=== PATIENT | male | born 1945 | race Hispanic/Latino ===

== ENCOUNTER 2018-10-11 07:58 | Inpatient (IN) | payer MEDICARE, OTHER ==
[~2018-10-11] VITALS: Ht 177.8 cm; Wt 75.4 kg
--- NOTE | ~2018-10-11 | EKG ---
[facility] [address] [facility] [place], [place] [address] Draft EK completed, results pending confirmation PATIENT NAME: ART MALAVE Electrocardiogram DATE OF : 47 PHYSICIAN: PRELIMINARY REPORT #: [id number] REPORT IS CONFIDENTIAL AND NOT TO BE RELEASED WITHOUT AUTHORIZATION
[2018-10-11] MEDS ORDERED: LOSARTAN POTASS50 MG PO (08:01)
[2018-10-11] MEDS ORDERED: PLAVIX75 MG PO (08:01)
[2018-10-11] MEDS ORDERED: ARMOUR THYROID30 MG PO (16:39)
[2018-10-11] MEDS ORDERED: ALDACTONE50 MG PO (16:40)
[2018-10-11] MEDS ORDERED: TERAZOSIN HCL2 MG PO (16:42)
[2018-10-11] MEDS ORDERED: VIAGRA100 MG PO (16:44)
[2018-10-11] MEDS ORDERED: HYDROCODON-ACE1 EA10 PO (16:46)
[2018-10-11] MEDS ORDERED: PROTONIX40 MG PO (16:47)
[2018-10-11] MEDS ORDERED: NITROSTAT0.4 MG SL (16:48)
[2018-10-11] MEDS ORDERED: NORVASC10 MG PO (16:49)
[2018-10-11] MEDS ORDERED: CLONIDINE HCL0.1 M1 PO (16:50)
[2018-10-11] MEDS ORDERED: COREG25 MG PO (16:51)
[2018-10-11] MEDS ORDERED: ASPIR-LOW81 MG PO (16:53)
--- NOTE | 2018-10-11 18:52 | EKG ---
[facility] [address] [facility] [place] [address] Signed Sinus rhythm with frequent premature ventricular complexes Left ventricular hypertrophy with QRS widening and repolarization abnormality Abnormal ECG No previous ECGs available Confirmed by MAKENNA LUI MD ([id number]) on 10/11/2018 6:52:50 PM Electronically Signed By: MAKENNA LUI MD 10/11/18 1852 PATIENT NAME: FRIEDAART Electrocardiogram DATE OF : 47 PHYSICIAN: MAKENNA LUI MD REPORT #: [id number] REPORT IS CONFIDENTIAL AND NOT TO BE RELEASED WITHOUT AUTHORIZATION
--- NOTE | 2018-10-12 06:04 | CONS ---
[facility] [address] [place], [place] [address] Signed DATE OF CONSULTATION: 10/11/2018 CHIEF COMPLAINT: Hematemesis. HISTORY OF PRESENT ILLNESS: Art is a 73-year-old gentleman, who has been on Plavix for cardiac stents, a right carotid artery stent what sounds like bilateral iliac artery stents. He has come up from [place], [place] to participate at our local casino. He thinks he has had some epigastric pain and possibly some dark stools in the last month or two. He is scheduled electively for upper and lower endoscopy back home. However, he was feeling nausea this morning and vomited up some blood. He came to our local emergency room for evaluation. He was seen by the ER doctor in our hospitalist and admitted to the ICU. He has been hemodynamically stable. Consequently, he was started on some clear liquids along with his bowel prep, but he vomited up some additional blood a little while ago while I was in the operating room. 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 Consequently, he has been made n.p.o. and we are waiting for the elective cases to clear since he has remained hemodynamically stable. PAST MEDICAL HISTORY: Hypertension, prostate cancer, status post radiation therapy and a remote SD. PAST SURGICAL HISTORY: CABG and cardiac stents x2, right carotid artery stent, bilateral iliac artery stents, colonoscopy around age 63 with polyps removed. SOCIAL HISTORY: He does not smoke. He has an occasional drink. He is , but he has a friend at [phone]. He has kept himself a DNR and he wants no CPR. He would accept a short-term trial of intubation and tube feeds. He is a retired cook. He does drive. He has one son, who is in his 40s. FAMILY HISTORY: Apparently his mom, dad, brothers, and sisters have all been healthy. No major medical issues. REVIEW OF SYSTEMS: He had 10 systems reviewed and he said he has no metal in his body. ALLERGIES: Statins. Electronically Signed By: LORI RODRÍGUEZ MD 10/12/18 0604 PATIENT NAME: ART MALAVE CONSULTATION DATE OF : 47 REPORT #: [id number] PHYSICIAN: LORI RODRÍGUEZ MD PCP: NO PRIMARY CARE PHYSICIAN REPORT IS CONFIDENTIAL AND NOT TO BE RELEASED WITHOUT AUTHORIZATION [facility] [address] [place], [place] [address] Signed MEDICATIONS: Plavix and losartan. PHYSICAL EXAMINATION: VITAL SIGNS: Blood pressure 151/74, heart rate 87, respiratory rate 16, temperature is 98.4. He is 99% on room air. He is 5 feet 10 inches, 72 kg. GENERAL: Art is a 73-year-old gentleman lying supine, semi-recumbent in his ICU bed. He does not appear systemically ill or toxic. He does not appear pale. LUNGS: His lungs are clear to auscultation bilaterally. HEART: The heart has a regular rate and rhythm without murmurs. ABDOMEN: Moderately protuberant, but soft. RECTAL: Rectal exam is not repeated. LABORATORY DATA: His white blood count 7.3, hemoglobin 11.5, neutrophils 78, platelets 173, BUN 47, creatinine 1.48, glucose 147. INR 0.9, PTT 25. Liver function tests, negative. Albumin is 4. RADIOGRAPHIC STUDIES: None. ASSESSMENT AND PLAN: Art is a 73-year-old gentleman, who presents with an upper GI bleed, on Plavix. I have reviewed all this with him in detail. I explained to him the upper endoscopy and he can relate that to his colonoscopy from 10 years ago. He understands we need an anesthesia provider in this acute setting particularly for airway protection and management. We will see if there is any bleeding in his stomach and we may need to use some cautery, injection, and/or clipping. He is aware that surgery sometimes is required, that given his Plavix that would carry its risks of bleeding as well. Certainly, angiogram would be available at a larger hospital if he needed that as well. If necessary, we could give him platelets to try to help with the Plavix. He is aware that there is risk of the procedure including, but not limited to gas, bloating, crampy abdominal pain, bleeding, perforation, requiring surgery, and missed diagnosis. Also, he said he would be willing to stay if things were stable, do his bowel prep tomorrow and have his colonoscopy the following day. I am going to check with my OR staff and we will add him on just soon as the elective case is clear. We will make him n.p.o. currently. He has expressed understanding and agrees the above plan. Lori Rodríguez MD Electronically Signed By: LORI RODRÍGUEZ MD 10/12/18 0604 PATIENT NAME: ART MALAVE CONSULTATION DATE OF : 47 REPORT #: [id number] PHYSICIAN: LORI RODRÍGUEZ MD PCP: NO PRIMARY CARE PHYSICIAN REPORT IS CONFIDENTIAL AND NOT TO BE RELEASED WITHOUT AUTHORIZATION [facility] [address] [place] [address] Signed ALB/MODL /[id number] cc: Lori Rodríguez MD Copies: LORI RODRÍGUEZ MD ~ Electronically Signed By: LORI RODRÍGUEZ MD 10/12/18 0604 PATIENT NAME: ART MALAVE CONSULTATION DATE OF : 47 REPORT #: [id number] PHYSICIAN: LORI RODRÍGUEZ MD PCP: NO PRIMARY CARE PHYSICIAN REPORT IS CONFIDENTIAL AND NOT TO BE RELEASED WITHOUT AUTHORIZATION
--- NOTE | 2018-10-12 06:04 | OR ---
[facility] [address] [place], [place] [address] Signed DATE OF OPERATION: 10/11/2018 SURGEON: Lori Aquino MD PREOPERATIVE DIAGNOSES: 1. Upper GI bleed (hematemesis). 2. Plavix/aspirin. POSTOPERATIVE DIAGNOSES: 1. Claudia-Avila tear. 2. Small hiatal hernia. PROCEDURE PERFORMED: Esophagogastroduodenoscopy without CLOtest and without biopsies. FINDINGS: Claudia-Avila tear on lesser curve of stomach next to GE junction/hiatal hernia. No active bleeding. Moderate dark clotted blood in fundus. No other evidence of bleeding, ulcerations, gastritis, etc., especially the antrum and duodenum. ESTIMATED BLOOD LOSS: None. INDICATIONS: Art is a 73-year-old gentleman who has a long history of coronary and peripheral arterial disease. He had two bypass grafts placed around 2000 and later had a couple of cardiac stents placed. He has had a right carotid endarterectomy and then they went back and ballooned that area. He thinks maybe he has bilateral iliac stents and/or balloon angioplasty, but he is not sure. Later, we found some of his previous progress notes. It looks like may be he even had a TIA. Consequently, he has been on Plavix and aspirin for his maintenance therapy. Unfortunately, his blood pressure is not particularly well controlled. I wonder if that does not have something to do with compliance issues. In fact, he has been declining treatment of his cholesterol. He had severe myalgias with his statins and so that I think has left some concern in his mind. He talked about a colonoscopy around age 63 and he thinks he had colonic polyps removed. He thinks also he may have had an AR previously. He did have his prostate cancer treated with some type of radiation. Art is from [facility] and we see that he apparently moved recently and we see a note from his nib inspector, Dr. Ramin De Leon who was in [place], [place]. Art is come over to [place] to the [employer] with his friend and was feeling well and I did have some vomiting and apparently Electronically Signed By: LORI AQUINO MD 10/12/18 0604 PATIENT NAME: ART MALAVE OPERATIVE REPORT DATE OF : 47 REPORT #: [id number] PHYSICIAN: LORI AQUINO MD PCP: NO PRIMARY CARE PHYSICIAN REPORT IS CONFIDENTIAL AND NOT TO BE RELEASED WITHOUT AUTHORIZATION [facility] [address] [place], [place] [address] Signed saw some blood. He was little concerned about that and came to our local emergency room for evaluation. His blood pressures have been as high as 180s and 190s. Otherwise, he was hemodynamically stable in the ER. He was admitted to our ICU earlier today to the Hospitalist Service. I was operating at that time. I came over in the meantime and Art seems to be doing quite well. Later, he did vomit up some additional blood after I had left. Just as the other OR cases were available, I had for his upper endoscopy. I met with Art and we had talked this over in detail. He remembers having his colonoscopy. I explained the upper endoscopy is very similar. Because of his current situation, we will have an anesthesia provider help us with increased monitoring and protection of his airway. He understands the risks of that procedure including, but not limited to gas bloating, crampy abdominal pain, bleeding, perforation requiring surgery, and possible need for surgery to control bleeding from gastric or duodenal ulcer. He has himself a DNR. He really does not want any CPR. He said he would accept intubation and/or tube feeds on a short-term few days maybe a week. But the outlook was poor, he did not want to sustain that. Later, when he talked to our anesthesia provider, he decided he would remove the DNR status for 24 hours. Given that, he had expressed understanding and wished to proceed. PROCEDURE NOTE: Art was taken down to our endoscopy suite and placed in a supine semi-recumbent position under general endotracheal tube anesthesia. The adult gastroscope was then introduced and advanced down the esophagus slowly under direct visualization. He had a little bit old blood in the esophagus and then we came through the GE junction with a tiny bit of granulation tissue, but no Barnes mucosa. No evidence of any esophagitis in the distal, middle, or upper esophagus. As we entered the fundus of course, there was a moderate amount of dark clotted blood. The body and antrum of the stomach showed a little bit of old blood, but nothing red. We could see that very well. We went through the antrum out in the pyloric bulb and in the duodenum itself. Much less blood obvious out in the distal duodenum. The duodenum and pyloric channel were unremarkable. Specifically, no evidence of any inflammatory changes or ulcers in the pyloric channel. We took a few minutes, then irrigated the antrum and found that it was quite healthy as well. No ulcerations in the antrum or remainder of the stomach including the incisura, body, and fundus of the stomach. Upon retroflexion of scope, we could see a moderate to large amount of clotted blood in the fundus and on the lesser curve, he does have a Claudia-Avila tear. We watched that area for quite some time and irrigated the area and there was no further bleeding. He does have a small hiatal hernia. The scope was withdrawn up to the area of the GE junction, which was compliant without stricture. We saw no gastric or esophageal varices. Again, very minimal disruption to the Z-line. Because of his Plavix and aspirin, we did not proceed with any of our routine biopsies or CLOtest. We did not place any clips on his Claudia-Avila tear. Again, the distal, middle, and upper esophagus were unremarkable. After this, the gas was suctioned out and the gastroscope removed. Atr tolerated his procedure quite well. Electronically Signed By: LORI AQUINO MD 10/12/18 0604 PATIENT NAME: ART MALAVE OPERATIVE REPORT DATE OF : 47 REPORT #: [id number] PHYSICIAN: LORI AQUINO MD PCP: NO PRIMARY CARE PHYSICIAN REPORT IS CONFIDENTIAL AND NOT TO BE RELEASED WITHOUT AUTHORIZATION [facility] [address] [place], [place] [address] Signed RECOMMENDATIONS: Art will be returned to his ICU room and he will be allowed some minimal to moderate clear liquids and he could certainly take medications orally as needed for his blood pressure and so forth. We will repeat his serial hemoglobins and physical exam as well. He will need to be off that aspirin and Plavix at least 4 weeks, if not 6 to 8. Lori Aquino MD ALB/MODL /[id number] cc: Ramin De Leon MD [facility] Lori Aquino MD Copies: LORI AQUINO MD ~ Electronically Signed By: LORI AQUINO MD 10/12/18 0604 PATIENT NAME: ART MALAVE OPERATIVE REPORT DATE OF : 47 REPORT #: [id number] PHYSICIAN: LORI AQUINO MD PCP: NO PRIMARY CARE PHYSICIAN REPORT IS CONFIDENTIAL AND NOT TO BE RELEASED WITHOUT AUTHORIZATION
--- NOTE | 2018-10-12 20:37 | EKG ---
[facility] [address] [facility] [place] [address] Signed Sinus tachycardia Nonspecific intraventricular block T wave abnormality, consider inferolateral ischemia Abnormal ECG When compared with ECG of 12-OCT-2018 20:13, (Unconfirmed) T wave inversion in Lead 1 and aVL are more pronounced. ST segment appear more depressed in V5 and V6 leads. Confirmed by MAKENNA LUI MD ([id number]) on 10/12/2018 8:37:05 PM Electronically Signed By: MAKENNA LUI MD 10/12/18 2037 PATIENT NAME: ART MALAVE Electrocardiogram DATE OF : 47 PHYSICIAN: MAKENNA LUI MD REPORT #: [id number] REPORT IS CONFIDENTIAL AND NOT TO BE RELEASED WITHOUT AUTHORIZATION
--- NOTE | 2018-10-14 16:04 | EKG ---
[facility] [address] [facility] [place] [address] Signed Normal sinus rhythm Nonspecific intraventricular block T wave abnormality, consider inferolateral ischemia Abnormal ECG When compared with ECG of 12-OCT-2018 20:14, No significant change was found Confirmed by MAKENNA LUI MD ([id number]) on 10/14/2018 4:03:57 PM Electronically Signed By: MAKENNA LUI MD 10/14/18 1604 PATIENT NAME: FRIEDAART NELSON Electrocardiogram DATE OF : 47 PHYSICIAN: MAKENNA LUI MD REPORT #: [id number] REPORT IS CONFIDENTIAL AND NOT TO BE RELEASED WITHOUT AUTHORIZATION
--- NOTE | 2018-10-14 16:04 | EKG ---
[facility] [address] [facility] [place] [address] Signed Sinus rhythm with premature atrial complexes Nonspecific intraventricular conduction delay ST \T\ T wave abnormality, consider inferolateral ischemia Abnormal ECG When compared with ECG of 13-OCT-2018 05:19, (Unconfirmed) premature atrial complexes are now present Questionable change in QRS duration Confirmed by MAKENNA LUI MD ([id number]) on 10/14/2018 4:04:04 PM Electronically Signed By: MAKENNA LUI MD 10/14/18 1604 PATIENT NAME: ART MALAVE Electrocardiogram DATE OF : 47 PHYSICIAN: MAKENNA LUI MD REPORT #: [id number] REPORT IS CONFIDENTIAL AND NOT TO BE RELEASED WITHOUT AUTHORIZATION
== END 2018-10-13 11:12 | disposition short-term general hospital (02) | DRG 368 ==
LOC: ED 07:58 → CCU 08:00 → ED 09:30 → CCU 13:26 → MS 10-12 11:00 → CCU 10-13 08:25
PROVIDERS: Colon & Rectal Surgery; ADMIT Student in an Organized Health Care Education/Training Program
PROC: 30263N1 (ICD-10-PCS; 2018-10-11)
PROC: 0DJ08ZZ Inspection of Upper Intestinal Tract, Via Natural or Artificial Opening Endoscopic (ICD-10-PCS; principal; 2018-10-11 15:30)
DX: K22.6 Gastro-esophageal laceration-hemorrhage syndrome (principal); I21.A1 Myocardial infarction type 2; I21.4 Non-ST elevation (NSTEMI) myocardial infarction; D62 Acute posthemorrhagic anemia; N17.9 Acute kidney failure, unspecified; K44.9 Diaphragmatic hernia without obstruction or gangrene; I12.9 Hypertensive chronic kidney disease with stage 1 through stage 4 chronic kidney disease, or unspecified chronic kidney disease; N18.9 Chronic kidney disease, unspecified; I25.10 Atherosclerotic heart disease of native coronary artery without angina pectoris; E78.5 Hyperlipidemia, unspecified; G47.33 Obstructive sleep apnea (adult) (pediatric); K21.9 Gastro-esophageal reflux disease without esophagitis; E03.9 Hypothyroidism, unspecified; M54.9 Dorsalgia, unspecified; G89.29 Other chronic pain; Z66 Do not resuscitate; Z95.820 Peripheral vascular angioplasty status with implants and grafts; Z85.46 Personal history of malignant neoplasm of prostate; Z79.02 Long term (current) use of antithrombotics/antiplatelets; Z95.1 Presence of aortocoronary bypass graft; Z95.5 Presence of coronary angioplasty implant and graft; Z88.8 Allergy status to other drugs, medicaments and biological substances; Z79.899 Other long term (current) drug therapy
CPT/HCPCS: 36415; 80048; 80053; 82330; 83735; 84100; 84484; 85025; 85610; 85730; 86850; 86900; 86901; 86920; 93005; 93010; C9113; J0330; J2270; J2405; J2704; J3475; J7042; J7120